=== PATIENT | male | born 1960 | race Two or more races ===

== ENCOUNTER 2024-07-15 02:13 | Emergency (ER) | payer BC ==
[~2024-07-15] VITALS: Ht 177.8 cm; Wt 88.9 kg
[2024-07-15] MEDS ORDERED: IPRATROPIUM/ALBUTEROL SULFATE 3 ML AMPUL.NEB IH STA (03:04)
[2024-07-15] MEDS ORDERED: IPRATROPIUM/ALBUTEROL SULFATE 3 ML AMPUL.NEB IH ONE (03:12)
[2024-07-15 03:16] LABS: ABG PH 7.422 (7.35-7.45); ABG PO2 60.5 mmHg (80-100); BASE EXCESS -2.5 mmol/l; SaO2 91.2 %
[2024-07-15 03:23] LABS: HEMATOCRIT 49.6 % (39.0-48.0); HEMOGLOBIN 16.7 g/dL (13-16.00); MEAN CELL VOLUME 92.7 fL (80.0-100.00); MEAN CORPUSCULAR HEMOGLOBIN 31.3 pg (27.00-32.0); MEAN CORPUSCULAR HGB CONC 33.7 g/dl (32.0-36.0); PLATELET COUNT 134 K/uL (150-450); RED BLOOD COUNT 5.35 M/uL (4.00-6.00); RED CELL DISTRIBUTION WIDTH 14.5 % (11.5-14.5)
[2024-07-15 04:17] LABS: ALBUMIN 3.7 gm/dL (3.4-5.0); BILIRUBIN TOTAL 0.67 mg/dL (0.3-1.2); CALCIUM 8.2 mg/dL (8.5-10.1); CREATININE SERUM 1.08 mg/dL (0.70-1.30); GFR 68.62; GLOBULINA 3.6 G/DL (2.4-3.5); POTASSIUM 4.46 mEq/L (3.5-5.1); TOTAL PROTEIN 7.3 gm/dL (6.4-8.2)
[2024-07-15 04:43] LABS: D DIMER 0.53 MG/L; INR 0.98; PARTIAL THROMBOPLASTIN TIME 30.9 SECONDS (22.0-34.0); PROTHROMBIN TIME 10.7 SECONDS (9.0-11.5)
[2024-07-15 07:34] LABS: allen test SATISFACTORY; o2 21 %; puncture site RADIAL RIGHT
== END 2024-07-15 07:22 | disposition home or self-care (01) ==
LOC: ER 02:16
DX: R53.81 Other malaise (principal); J44.9 Chronic obstructive pulmonary disease, unspecified; R06.02 Shortness of breath; Z20.822 Contact with and (suspected) exposure to COVID-19
CPT/HCPCS: 36415; 71045; 71260; 82803; 93005; Q9965